=== PATIENT | male | born 1990 | race Caucasian/White ===

== ENCOUNTER 2019-08-20 17:58 | Inpatient (IN) | payer OTHER ==
[~2019-08-20] VITALS: Ht 152.4 cm; Wt 81.6 kg
[~2019-08-20 17:58] MED LIST: HYDROCODONE-AP1 EAC6 PO; IBUPROFEN 800800 MG PO; NOHOMEMEDICATIONS
[2019-08-20 17:59] VITALS: BP 132/79
[2019-08-20] MEDS ORDERED: KEFLEX500 M2 PO (18:11)
[2019-08-20] MEDS ORDERED: BACTRIM DS TAB1 EAC1 PO (18:11)
[2019-08-20 18:51] LABS: ABSOLUTE NEUTROPHILS 7.4 thou/uL (1.4-8.2); BASOPHILS 0.7 % (0.0-2.0); EOSINOPHILS 0.4 % (0.0-3.0); HEMATOCRIT 40.5 % (42.0-52.0); HEMOGLOBIN 14.3 gm/dL (14.0-18.0); LYMPHOCYTES 11.8 % (24.0-44.0); MCH 33.4 pg (26.0-34.0); MCHC 35.2 g/dL (28.0-37.0); MCV 94.9 fL (80.0-100.0); MONOCYTES 9.8 % (1.0-8.0); PLATELET COUNT 155 thou/uL (150-400); POLYS 77.3 % (36.0-66.0); RBC 4.26 mil/uL (4.50-6.00); RDW 13.2 % (10.5-14.5); WBC 9.6 thou/uL (4.0-11.0)
[2019-08-20 18:59] LABS: CALCIUM 9.2 mg/dL (8.5-10.1); CREATININE 1.2 mg/dL (0.7-1.3); POTASSIUM 3.8 mmol/L (3.5-5.1)
[2019-08-20 19:05] LABS: ALBUMIN 3.7 g/dL (3.4-5.0); TOTAL BILIRUBIN 0.6 mg/dL (<0.1-1.0); TOTAL PROTEIN 7.6 g/dL (6.4-8.2)
[2019-08-20 20:18] VITALS: BP 125/83
[2019-08-21 06:18] LABS: HEMATOCRIT 38.7 % (42.0-52.0); HEMOGLOBIN 13.4 gm/dL (14.0-18.0); MCH 33.3 pg (26.0-34.0); MCHC 34.6 g/dL (28.0-37.0); MCV 96.2 fL (80.0-100.0); RBC 4.02 mil/uL (4.50-6.00); RDW 13.1 % (10.5-14.5); WBC 5.7 thou/uL (4.0-11.0)
[2019-08-21 06:25] LABS: CREATININE 1.1 mg/dL (0.7-1.3); POTASSIUM 3.4 mmol/L (3.5-5.1)
[2019-08-21 06:32] LABS: CALCIUM 8.2 mg/dL (8.5-10.1)
[2019-08-21 08:03] VITALS: BP 103/59
--- NOTE | 2019-08-21 09:22 | NUR ---
progress pt a/o x 4 up ad liban left upper arm red and swollen scab intact to elbow no drainage, ivf's infused as ordered, vancomycin and zosyn administered as ordered pt slept on and off throughout shift voiding qs, using call light appropriately continue poc.
[2019-08-21 18:23] VITALS: BP 108/61
[2019-08-21 20:15] VITALS: BP 120/71
--- NOTE | 2019-08-21 20:18 | NUR ---
ASSUMED PT CARE AT 7AM.PT IN BED RESTING AFTER BREAKFAST.C/O LEFT ELBOW PAIN . TRAMADOL GIVEN WITH RELIEF.DR STEWART HERE,ORDER NOTED.AROUND 1530 THIS EVENING, PT LEFT THE UNIT TO BUY SOME CANDY IN THE VENDING MACHINE, BUT WHEN IT WAS OVER 10MINUTES THAT PT DIDN'T RETURNED TO UNIT,SECURITY AND NSG [place] TECHNICIAN NOTIFIED.BUT PT RETURNED TO UNIT 30MINUTES LATER.RN INFORMED PT TO STAY AROUD THE UNIT AND KEEP HOSPITAL GOWN ON NEXT TIME HE WANTED TO GO AND BUY STUFF IN CANDY MACHINE.REPORT OFF TO NOC RN.
--- NOTE | 2019-08-22 01:54 | NUR ---
patient aox4 makes needs known. patient has cellulities on left arm. open area noted on the elbow, no drainage, no s/s of infection. patient is up at liban. patient is calm and cooperative with meds and care. patient in bed asleep at this time breathing regular and unlaboured.
[2019-08-22 08:12] VITALS: BP 107/67
--- NOTE | 2019-08-22 14:08 | NUR ---
PT ADMITTED RELATED TO CELLULITIS LUE. CM REVIEWED CHART AND SPOKE WITH CARE TEAM. CM MET WITH PT AT BEDSIDE YESTERDAY. PT IS A&O X4. CM ROLE INTRODUCED. PT INDICATED HE LIVES IN A HOUSE ALONE WITH 5 STEPS TO ENTER AND NO STEPS INSIDE. 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 PT INDICATED NO DME OR HH HX. PT INDICATED NO PCP IS RECEPTIVE TO CRITICAL ACCESS HOSPITAL CLINIC PACKET. PT NOTIFIED PHYSICIAN THAT HE A SO MIGHT BE ABLE TO GO [facility] IF NEEDED IN THE FUTURE BUT WOULD NEED TO BE VERIFIED. PT INDICATED HE PLANS TO DC HOME ONCE MEDICALLY STABLE.
[2019-08-22 14:21] VITALS: BP 102/61
--- NOTE | 2019-08-22 18:53 | NUR ---
Assumed pt care this am, VS have been stable. Seen by Dr. Ferrera, wound cultures sent to the lab from the left elbow. Pt informed us he wanted to go down and smoke a cigarette, pt also stated was allowed yesterday to do so. Educated on the policies anbd procedures of the hospital an sked if pt wanted a nicotine patch, pt refused and expressed understanding. Pt is up at liban and independt of all ADL,s pt took his ownh bath. MRI screening sheet filled up and faxed. POC followed, no signs or verbaliations of distress have been noted. Pain managed with medication.
[2019-08-22 19:39] VITALS: BP 115/66
--- NOTE | 2019-08-23 08:04 | NUR ---
Progress pt progressing left arm has shown a good amount of improvement redness and swelling subsided. scab to left elbow removed and wound cultured during day shift no drainage noted on my shift. vanco trough was 7 so dose adjusted from 1000 mg to 1250 mg infused as ordered. Pt up ad liban voiding qs has a good appetite iv antibiotics continue
[2019-08-23 09:47] VITALS: BP 98/56
--- NOTE | 2019-08-23 12:47 | HC ---
[facility] [place] [address] CONSULTATION Name: ARA MCCLELLAN Sara Room #: 457-P [facility] IN M.R.#: [id number] Admission: 08/20/19 Attend Phys: Jesus Guthrie MD Discharge: Date of : 86 Report #: [id number] THIS REPORT FOR: //name// CC: PETE physician/PCP Jesus Guthrie DATE OF SERVICE: 08/22/2019 INFECTIOUS DISEASES CONSULTATION REASON FOR CONSULTATION: I was asked to evaluate concerning left olecranon bursitis. HISTORY OF PRESENT ILLNESS: A 28-year-old presents with left arm swelling and pain. One week ago, suffered an abrasion to his left elbow when he fell landing on the concrete. He developed a wound there over the ensuing several days with increased erythema and some purulent drainage. He was seen at [facility] the Emergency Room, placed on cephalexin and Bactrim. Swelling worsened. He did have spontaneous drainage of a fairly large amount of clear fluid from the olecranon bursa region. Then it started swelling up again with more pain and erythema. He had low-grade fever noted. Occasional chill, no sweats. Brought into the Emergency Room on 08/20/2019 for further evaluation. Placed on vancomycin. No cultures obtained. X-ray showed no evidence of bony change. White count was normal. Overall, has shown some improvement, but still has a fair amount of swelling and tenderness. Has limited range of motion due to such. ALLERGIES: None known. MEDICATIONS: None other than what has been noted above. FAMILY HISTORY: Noncontributory. SOCIAL HISTORY: Smoker, moderate alcohol intake. PAST MEDICAL HISTORY: Hand and wrist surgery. REVIEW OF SYSTEMS: Ten-point review was negative other than what has been described above. PHYSICAL EXAMINATION: VITAL SIGNS: Afebrile and hemodynamically stable. EXTREMITIES: Left elbow with 2+ swelling posteriorly over the olecranon region. Moderate tenderness to this area, some fluctuance. There was an eschar with no purulent drainage noted. Surrounding erythema. Range of motion was limited due to his pain and swelling. Pulses in the wrist were normal. No adenopathy in [facility] [address] [place] [address] CONSULTATION Name: ARA MCCLELLAN Room #: 457-P [facility] IN M.R.#: [id number] Admission: 08/20/19 Attend Phys: Jesus Guthrie MD Discharge: Date of : 86 Report #: [id number] the axilla. CHEST: Clear. HEART: Regular. ABDOMEN: Soft. LABORATORY STUDIES: Reviewed with creatinine 1.2. Hemoglobin 14, WBC 9.6. Blood cultures were negative to date. IMPRESSION: 1. Left olecranon bursitis with associated cellulitis. Overall, is showing some signs of improvement. Need to evaluate for any drainable collection. 2. Tobacco use. RECOMMENDATIONS: Continue vancomycin for Staph aureus would be most likely in this scenario. MRI scan and culture the wound. If significant fluid still present, we will have Orthopedic Surgery do incision and drainage. Otherwise, keep elevated and pressure relief. <ELECTRONICALLY SIGNED> By: Betito Ferrera MD 08/23/19 [id number] Betito Ferrera MD /nt
[2019-08-23] MEDS ORDERED: LINEZOLID600 MG PO (13:07)
[2019-08-23 13:53] LABS: URINE BILIRUBIN NEGATIVE (Negative); URINE BLOOD NEGATIVE (Negative); URINE CLARITY CLEAR; URINE COLOR YELLOW; URINE GLUCOSE-RANDOM* NEGATIVE (Negative); URINE KETONES NEGATIVE (Negative); URINE LEUKOCYTES-REFLEX NEGATIVE (Negative); URINE NITRITE-REFLEX NEGATIVE (Negative); URINE PROTEIN (DIPSTICK) NEGATIVE (Negative); URINE SPECIFIC GRAVITY 1.025 (1.005-1.035); URINE UROBILINOGEN 0.2 E.U./dl (0.2-1.0)
[2019-08-23 14:14] VITALS: BP 98/56
[2019-08-23 15:24] VITALS: BP 98/56
--- NOTE | 2019-08-23 15:40 | NUR ---
Took over care of pt. approx. 0700. A&Ox4 Pt. discharged approx. 1500. Education given about following up eduard LOTT. Scripts given along with education on wound
== END 2019-08-23 16:04 | disposition home or self-care (01) | DRG 603 ==
LOC: ER 17:58 → 4W 20:00 → EROBS 20:00 → 4W 20:31
PROVIDERS: Emergency Medicine; ADMIT Internal Medicine
DX: L03.114 Cellulitis of left upper limb (principal); F17.200 Nicotine dependence, unspecified, uncomplicated; L98.499 Non-pressure chronic ulcer of skin of other sites with unspecified severity; M70.22 Olecranon bursitis, left elbow; Z79.899 Other long term (current) drug therapy; Z71.6 Tobacco abuse counseling
CPT/HCPCS: 10040